=== PATIENT | female | born 1960 | race Caucasian/White ===

== ENCOUNTER 2018-04-15 18:38 | Emergency (ER) | payer MEDICAID, OTHER ==
[~2018-04-15] VITALS: Ht 160 cm; Wt 113.4 kg
[2018-04-15] MEDS ORDERED: ONDANSETRON ODT 4 MG TAB PO ONE (21:00)
[2018-04-15] MEDS ORDERED: MEPERIDINE HCL (50 MG/ML) 1 ML VIAL IM ONE (21:00)
[2018-04-15 21:14] VITALS: BP 177/84
== END 2018-04-15 22:08 | disposition home or self-care (01) ==
LOC: ER 18:38
DX: S42.441A Displaced fracture (avulsion) of medial epicondyle of right humerus, initial encounter for closed fracture (principal); Z88.0 Allergy status to penicillin; W01.0XXA Fall on same level from slipping, tripping and stumbling without subsequent striking against object, initial encounter; Y93.89 Activity, other specified; Y99.8 Other external cause status; Y92.89 Other specified places as the place of occurrence of the external cause
CPT/HCPCS: 29105; 73030; 73080; 96372; 99284; J2175; Q0162

== ENCOUNTER 2021-03-23 19:45 | Inpatient (IN) | payer MEDICAID ==
[~2021-03-23] VITALS: Ht 165.1 cm; Wt 122.4 kg
[2021-03-23 20:57] LABS: Basophils # (auto) 0.1 10 ^3/uL (0-0.2); Basophils % (auto) 0.5 % (0.0-2.0); Eosinophils # (auto) 0 10 ^3/uL (0-0.8); Hematocrit 44.9 % (36.0-46.0); Lymphocytes # (auto) 1.3 10 ^3/uL (0.4-5.4); Lymphocytes % (auto) 10.1 % (10.0-50.0); Mean Corpuscular Hemoglobin 28.4 pg (28.0-32.0); Mean Corpuscular Hgb Conc. 33.5 g/dL (32.0-36.0); Mean Corpuscular Volume 84.8 fL (80.0-100.0); Monocytes # (auto) 0.4 10 ^3/uL (0-1.3); Monocytes % (auto) 3.5 % (0.0-12.0); Neutrophils # (auto) 10.9 10 ^3/uL (1.6-8.6); Neutrophils % (auto) 85.9 % (37.0-80.0); Nucleated Red Blood Cells % 0.1 %; Red Blood Cells 5.29 10^6/uL (4.0-5.20); Red Cell Distribution Width 16.9 % (11.8-14.3); White Blood Cell 12.7 10^3/uL (4.4-10.8)
[2021-03-23 21:07] LABS: Albumin 4.7 g/dL (3.4-5.0); Calcium 9.5 mg/dL (8.5-10.1); Potassium 3.1 mmol/L (3.5-5.1)
[2021-03-23 21:13] LABS: Partial Thromboplastin Time 30.7 sec (23.0-31.2)
[2021-03-23 21:14] LABS: Bilirubin, Total 0.5 mg/dL (0.2-1.0); Total Protein 8.8 g/dL (6.4-8.2)
[2021-03-23] MEDS ORDERED: ONDANSETRON HCL 4 MG/2 ML VIAL IV ONE (21:15)
[2021-03-23] MEDS ORDERED: fentaNYL CITRATE 100 MCG/2 ML VL IV ONE (21:15)
[2021-03-23] MEDS ORDERED: LACTATED RINGER'S 1,000 ML IV ONE (21:15)
[2021-03-23] MEDS ORDERED: IOHEXOL 300 MG/ML 100ML BOTTLE IJ ONE (21:23)
[2021-03-23] MEDS: DICYCLOMINE HCL (10MG/ML) 2 ML AMPULE IM ONE (21:45)
[2021-03-23 22:37] LABS: Lactic Acid w/Reflex 3.2 mmol/L (0.4-2.0)
[2021-03-23 23:26] LABS: Urine Bacteria NONE SEEN /hpf (None Seen); Urine Blood TRACE /uL (Negative); Urine WBC 2 /hpf (0 - 5)
[2021-03-23 23:27] LABS: Urine Specific Gravity > 1.050 (1.001-1.035)
[2021-03-24] MEDS ORDERED: NITROGLYCERIN 0.4 MG SL TAB SL PRN (05:45)
[2021-03-24] MEDS ORDERED: POTASSIUM CHL 20MEQ/100ML 100 ML IV ONE (05:45)
[2021-03-24] MEDS ORDERED: MORPHINE SULF INJ 2 MG/ML SYRINGE 1ML IV PRN (05:45)
[2021-03-24] MEDS ORDERED: hydrALAZINE HCL 20 MG/ML VL IV PRN (05:45)
[2021-03-24] MEDS ORDERED: ASPirin 325 MG TAB PO ONE (05:45)
[2021-03-24] MEDS ORDERED: MORPHINE SULFATE 4 MG/ML SYR/VIAL IV PRN (05:45)
[2021-03-24 07:33] LABS: Basophils # (auto) 0.1 10 ^3/uL (0-0.2); Basophils % (auto) 0.5 % (0.0-2.0); Eosinophils # (auto) 0 10 ^3/uL (0-0.8); Hematocrit 44.3 % (36.0-46.0); Hemoglobin 14.8 g/dL (12.2-16.2); Lymphocytes # (auto) 1.6 10 ^3/uL (0.4-5.4); Lymphocytes % (auto) 11.6 % (10.0-50.0); Mean Corpuscular Hemoglobin 28.3 pg (28.0-32.0); Mean Corpuscular Hgb Conc. 33.4 g/dL (32.0-36.0); Mean Corpuscular Volume 84.8 fL (80.0-100.0); Monocytes # (auto) 0.9 10 ^3/uL (0-1.3); Monocytes % (auto) 6.4 % (0.0-12.0); Neutrophils # (auto) 11.4 10 ^3/uL (1.6-8.6); Neutrophils % (auto) 81.5 % (37.0-80.0); Nucleated Red Blood Cells % 0.2 %; Red Blood Cells 5.23 10^6/uL (4.0-5.20); Red Cell Distribution Width 17.2 % (11.8-14.3); White Blood Cell 13.9 10^3/uL (4.4-10.8)
[2021-03-24 07:43] LABS: Albumin 4.4 g/dL (3.4-5.0); Calcium 8.8 mg/dL (8.5-10.1); Potassium 3.1 mmol/L (3.5-5.1)
[2021-03-24 07:49] LABS: BUN/Creatinine Ratio 17.4; Bilirubin, Total 0.5 mg/dL (0.2-1.0); Total Protein 8.5 g/dL (6.4-8.2)
[2021-03-24] MEDS: metroNIDAZOLE 500MG/100ML 100 ML IV SCH ×3 (07:58→21:25)
[2021-03-24] MEDS: HYDROcodone-ACET 5/325MG TAB PO PRN (07:58)
[2021-03-24] MEDS: SODIUM CHLORIDE 0.9% 1,000 ML IV SCH ×2 (08:57→21:26)
[2021-03-24] MEDS ORDERED: FAMOTIDINE (10MG/ML) 2ML VL IV SCH (10:00)
[2021-03-24] MEDS: ASPirin 81 mg TAB PO SCH (10:00)
[2021-03-24] MEDS: amLODIPine BESYLATE 5 MG TAB PO SCH (11:06)
[2021-03-24] MEDS: ONDANSETRON HCL 4 MG/2 ML VIAL IV PRN ×2 (11:25→19:45)
[2021-03-24] MEDS: levoFLOXacin 500MG 100 ML IV SCH (11:35)
[2021-03-24] MEDS: ENOXAPARIN SOD 40 MG/0.4 ML SYRINGE SC SCH (11:39)
[2021-03-24] MEDS: ACETAMINOPHEN 325 MG TAB PO PRN (14:49)
[2021-03-24 16:57] VITALS: BP 147/82
[2021-03-24] MEDS: PANTOPRAZOLE 40 MG TAB PO SCH (21:25)
[2021-03-24 22:00] VITALS: BP 137/98
[2021-03-25] MEDS: HYDROcodone-ACET 5/325MG TAB PO PRN ×2 (04:13→12:20)
[2021-03-25] MEDS: metroNIDAZOLE 500MG/100ML 100 ML IV SCH (04:51)
[2021-03-25 05:00] VITALS: BP 119/77
[2021-03-25 06:40] LABS: Basophils # (auto) 0 10 ^3/uL (0-0.2); Basophils % (auto) 0.2 % (0.0-2.0); Eosinophils # (auto) 0 10 ^3/uL (0-0.8); Eosinophils % (auto) 0.2 % (0.0-7.0); Hematocrit 41.4 % (36.0-46.0); Lymphocytes # (auto) 1.9 10 ^3/uL (0.4-5.4); Lymphocytes % (auto) 20.6 % (10.0-50.0); Mean Corpuscular Hemoglobin 28.8 pg (28.0-32.0); Mean Corpuscular Hgb Conc. 33.8 g/dL (32.0-36.0); Mean Corpuscular Volume 84.9 fL (80.0-100.0); Monocytes % (auto) 10.6 % (0.0-12.0); Neutrophils # (auto) 6.2 10 ^3/uL (1.6-8.6); Neutrophils % (auto) 68.4 % (37.0-80.0); Nucleated Red Blood Cells % 0.1 %; Red Blood Cells 4.88 10^6/uL (4.0-5.20); Red Cell Distribution Width 17.6 % (11.8-14.3); White Blood Cell 9.1 10^3/uL (4.4-10.8)
[2021-03-25 06:49] LABS: Albumin 3.8 g/dL (3.4-5.0); Calcium 8.5 mg/dL (8.5-10.1); Potassium 3.3 mmol/L (3.5-5.1)
[2021-03-25 06:54] LABS: Bilirubin, Total 0.4 mg/dL (0.2-1.0); Total Protein 7.4 g/dL (6.4-8.2)
[2021-03-25 09:00] VITALS: BP 129/74
[2021-03-25] MEDS: ACETAMINOPHEN 325 MG TAB PO PRN (09:06)
[2021-03-25] MEDS: ONDANSETRON HCL 4 MG/2 ML VIAL IV PRN (09:06)
[2021-03-25] MEDS ORDERED: POTASSIUM CHL 20 Meq TABLET PO ONE (10:00)
[2021-03-25] MEDS: amLODIPine BESYLATE 5 MG TAB PO SCH (12:20)
[2021-03-25] MEDS: ASPirin 81 mg TAB PO SCH (12:20)
[2021-03-25] MEDS: levoFLOXacin 500MG 100 ML IV SCH (12:20)
[2021-03-25] MEDS: PANTOPRAZOLE 40 MG TAB PO SCH ×2 (12:21→20:47)
[2021-03-25] MEDS: ENOXAPARIN SOD 40 MG/0.4 ML SYRINGE SC SCH (12:23)
[2021-03-25 13:00] VITALS: BP 143/87
[2021-03-25 13:03] LABS: BUN/Creatinine Ratio 16.2
[2021-03-25] MEDS ORDERED: HYOSCYAMINE SULF 0.125 MG ODT TAB PO PRN (13:45)
[2021-03-25] MEDS: SODIUM CHLORIDE 0.9% 1,000 ML IV SCH (14:14)
[2021-03-25] MEDS ORDERED: MELA3TAB27 PO (14:25)
[2021-03-25 17:00] VITALS: BP 128/73
[2021-03-25] MEDS: SUCRALFATE 1 GM/10 ML ORAL SUSP PO SCH ×2 (17:34→20:46)
[2021-03-25] MEDS: ATORVASTATIN 20 MG TAB PO SCH (20:47)
[2021-03-25 22:00] VITALS: BP 154/83
[2021-03-26] MEDS ORDERED: TEMAZEPAM 15 MG CAP PO ONE (00:30)
[2021-03-26 05:00] VITALS: BP 154/77
[2021-03-26] MEDS: SUCRALFATE 1 GM/10 ML ORAL SUSP PO SCH ×4 (05:24→21:24)
[2021-03-26 06:12] LABS: Potassium 3.6 mmol/L (3.5-5.1)
[2021-03-26 06:15] LABS: BUN/Creatinine Ratio 14.5; Calcium 8.5 mg/dL (8.5-10.1)
[2021-03-26] MEDS ORDERED: diphenhdrAMINE HCL 50 MG/1 ML VL ONE (08:43)
[2021-03-26] MEDS ORDERED: LIDOCAINE VISCOUS 2% 15ML UD ONE (08:43)
[2021-03-26 09:00] VITALS: BP 152/65
[2021-03-26] MEDS: amLODIPine BESYLATE 5 MG TAB PO SCH (09:16)
[2021-03-26] MEDS: HYDROcodone-ACET 5/325MG TAB PO PRN (09:17)
[2021-03-26] MEDS: ENOXAPARIN SOD 40 MG/0.4 ML SYRINGE SC SCH (10:00)
[2021-03-26] MEDS: ASPirin 81 mg TAB PO SCH (10:00)
[2021-03-26] MEDS: PANTOPRAZOLE 40 MG TAB PO SCH ×2 (10:00→21:24)
[2021-03-26] MEDS: SODIUM CHLORIDE 0.9% 1,000 ML IV SCH (10:00)
[2021-03-26] MEDS ORDERED: KETOROLAC TROMETH 30 MG/ML 1ML VIAL IV ONE (10:45)
[2021-03-26] MEDS: MIDAZOLAM HCL 5 MG/ML-1ML VIAL ONE ×2 (11:46→11:49)
[2021-03-26] MEDS: fentaNYL CITRATE 100 MCG/2 ML VL ONE ×2 (11:46→11:49)
[2021-03-26 13:00] VITALS: BP 191/114
[2021-03-26 13:06] VITALS: BP 148/72
[2021-03-26] MEDS ORDERED: LACTULOSE 20Gm/30ML SOLN PO ONE (13:15)
[2021-03-26] MEDS ORDERED: KETOROLAC TROMETH 30 MG/ML 1ML VIAL IV PRN (13:15)
[2021-03-26] MEDS ORDERED: LORazepam 2MG/ML-1ML VIAL IV ONE (13:15)
[2021-03-26 16:41] VITALS: BP 117/44
[2021-03-26] MEDS: ATORVASTATIN 20 MG TAB PO SCH (21:24)
[2021-03-26 22:00] VITALS: BP 129/68
[2021-03-27 05:00] VITALS: BP 141/91
[2021-03-27] MEDS: SODIUM CHLORIDE 0.9% 1,000 ML IV SCH ×2 (05:31→05:38)
[2021-03-27] MEDS: SUCRALFATE 1 GM/10 ML ORAL SUSP PO SCH ×2 (05:39→11:49)
[2021-03-27 09:00] VITALS: BP 127/72
[2021-03-27] MEDS: ASPirin 81 mg TAB PO SCH (09:56)
[2021-03-27] MEDS: amLODIPine BESYLATE 5 MG TAB PO SCH (09:57)
[2021-03-27] MEDS: PANTOPRAZOLE 40 MG TAB PO SCH (09:57)
[2021-03-27] MEDS: ENOXAPARIN SOD 40 MG/0.4 ML SYRINGE SC SCH (09:57)
[2021-03-27] MEDS ORDERED: PANT40TA2 PO (10:31)
[2021-03-27] MEDS ORDERED: SUCR1TAB22 PO (10:31)
[2021-03-27] MEDS ORDERED: ATOR20TA PO (10:31)
[2021-03-27] MEDS ORDERED: AML5T PO (10:31)
[2021-03-27] MEDS ORDERED: DOCU-94 PO (10:31)
[2021-03-27 13:00] VITALS: BP 130/74
== END 2021-03-27 16:34 | disposition home or self-care (01) | DRG 720 ==
LOC: ER 19:51 → TELE 03-24 06:00 → TELE-CENTR 03-24 14:14
PROVIDERS: ADMIT Nurse Practitioner Family; ATTEND Internal Medicine
PROC: 0DB68ZX Excision of Stomach, Via Natural or Artificial Opening Endoscopic, Diagnostic (ICD-10-PCS; 2021-03-26)
PROC: 0DB58ZX Excision of Esophagus, Via Natural or Artificial Opening Endoscopic, Diagnostic (ICD-10-PCS; principal; 2021-03-26 11:45)
DX: A41.9 Sepsis, unspecified organism (principal); I21.A1 Myocardial infarction type 2; E66.01 Morbid (severe) obesity due to excess calories; E87.1 Hypo-osmolality and hyponatremia; Z68.41 Body mass index [BMI] 40.0-44.9, adult; R13.10 Dysphagia, unspecified; I16.1 Hypertensive emergency; A05.9 Bacterial foodborne intoxication, unspecified; R73.9 Hyperglycemia, unspecified; E78.5 Hyperlipidemia, unspecified; E87.6 Hypokalemia; K20.90 Esophagitis, unspecified without bleeding; K29.70 Gastritis, unspecified, without bleeding; Z20.822 Contact with and (suspected) exposure to COVID-19; K25.9 Gastric ulcer, unspecified as acute or chronic, without hemorrhage or perforation; G43.909 Migraine, unspecified, not intractable, without status migrainosus; I10 Essential (primary) hypertension; Z90.710 Acquired absence of both cervix and uterus; Z88.0 Allergy status to penicillin
CPT/HCPCS: 36415; 43239; 70450; 70551; 71045; 74018; 74177; 80048; 80053; 80061; 81001; 83036; 83605; 83735; 83880; 84443; 84484; 85025; 85610; 85730; 86850; 86900; 86901; 87426; 93005; 93306; 96361; 96365; 96367; 96372; 96375; 97163; G0378; J1885; J1956; J2250; J2405; J3480; J3490

== ENCOUNTER 2024-11-17 14:20 | Inpatient (IN) | payer MEDICARE, MEDICAID ==
[~2024-11-17] VITALS: Ht 162.6 cm; Wt 115.0 kg
[~2024-11-17 14:20] MED LIST: ATOR20TA PO; DOCU-94 PO; MELA3TAB27 PO; PANT40TA2 PO; SUCR1TAB31 PO
--- NOTE | 2024-11-17 14:36 | ED.PDOC ---
GI ASSESSMENT HPI Comments 64-year-old female brought in by EMS presents with a chief complaint of abdominal pain, nausea, vomiting, and diarrhea x onset 0600 this morning. Patient states that her pain is localized to her RUQ, radiating to her LUQ, describes as sharp, and rates her pain a 9/10. Patient was given 50mcg Fentanyl IV by EMS for the pain. Patient was also hypertensive at 191/73. No other symptoms or modifying factors present at this time. Time Seen by MD: 14:27 Primary Care Provider: NONE Reviewed Notes: Nurses Notes, Medications, Allergies Allergies: Coded Allergies: Penicillins (Unverified Allergy, Unknown, 04/15/18) Home Meds Active Scripts Docusate Sodium (Colace) 100 Mg Cap, 1 CAP PO BID PRN, #30 CAP Prov:BITA COTE MD 03/27/21 Sucralfate (CARAFATE) 1 Gm Tab, 1 GM PO QIDACHS for 30 Days, #120 TAB Prov:BITA COTE MD 03/27/21 Pantoprazole Sodium Sesquihydr (Protonix) 40 Mg Tab, 40 MG PO BID for 30 Days, #60 TAB Prov:BITA COTE MD 03/27/21 Atorvastatin Calcium (Lipitor) 20 Mg Tab, 1 TAB PO DAILY, #30 TAB Prov:BITA COTE MD 03/27/21 Reported Medications Melatonin ( MELATONIN) 3 Mg Tab, 1 TAB PO QPM, #30 TAB 2 Refills 03/25/21 Information Source: Patient Mode of Arrival: Ambulatory Timing: Hours Duration: Since onset Prehospital treatment: None Quality: Aching Vomitus: Food Particles Stool: Watery, Brown Severity: Moderate Recent: None Recent Hx of: None Pain Location: RUQ Associated sign and symptoms: Nausea, Vomiting, Diarrhea, Abdominal Pain Past Medical History PAST MEDICAL HISTORY: GERD, HTN Surgical History: Hysterectomy LEASING SPECIALIST History: No Pertinent LEASING SPECIALIST History Family History Family History: Unknown Social History Smoker: Non-Smoker Alcohol: Denies ETOH Use Drugs: Marijuana Lives In: Home Constitutional: denies: chills, diaphoresis, fatigue, fever, malaise, sweats, weakness, others EENTM: denies: blurred vision, double vision, ear bleeding, ear discharge, ear drainage, ear pain, ear ringing, eye pain, eye redness, hearing loss, mouth pain, mouth swelling, nasal discharge, nose bleeding, nose congestion, nose pain, photophobia, tearing, throat pain, throat swelling, voice changes, others Respiratory: denies: cough, hemoptysis, orthopnea, SOB at rest, shortness of breath, SOB with excertion, stridor, wheezing, others Cardiovascular: denies: chest pain, dizzy spells, diaphoresis, Dyspnea on exertion, edema, irregular heart beat, left arm pain, lightheadedness, palpitations, PND, syncope, others Gastrointestinal: reports: abdominal pain, diarrhea, nausea, vomiting; denies: abdomen distended, blood streaked bowels, constipated, dysphagia, difficulty swallowing, hematemesis, melena, poor appetite, poor fluid intake, rectal bleeding, rectal pain, others Genitourinary: denies: abnormal vagina bleeding, burning, dyspareunia, dysuria, flank pain, frequency, hematuria, incontinence, pain, , vagina dis charge, urgency, others Neurological: denies: dizziness, fainting, headache, left sided numbness, left sided weakness, numbness, paresthesia, pre-existing deficit, right sided numbness, right sided weakness, seizure, speech problems, tingling, tremors, weakness, others Musculoskeletal: denies: back pain, gout, joint pain, joint swelling, muscle pain, muscle stiffness, neck pain, others Integumetry: denies: bruises, change in color, change in hair/nails, dryness, laceration, lesions, lumps, rash, wounds, others Allergic/Immunocompromised: denies: Difficulty Healing, Frequent Infections, Hives, Itching, others Hematologic/Lymphatic: denies: anemia, blood clots, easy bleeding, easy bruising, swollen glands, others Endocrine: denies: excessive hunger, excessive sweating, excessive thirst, excessive urination, flushing, intolerance to cold, intolerance to heat, unexplained weight gain, unexplained weight loss, others Psychiatric: denies: anxiety, bipolar disorder, depression, hopeless, panic disorder, schizophrenia, sleepless, suicidal, others All Other Systems: Reviewed and Negative Physical Exam General Appearance: Moderate Distress HEENT: Normal ENT Inspection, Pharynx Normal, TMs Normal Neck: Full Range of Motion, Non-Tender, Normal, Normal Inspection Respiratory: Chest Non-Tender, Lungs Clear, No Accessory Muscle Use, No Respiratory Distress, Normal Breath Sounds Cardiovascular: No Edema, No JVD, No Murmur, No Gallop, Normal Peripheral Pulses, Regular Rate/Rhythm Breast Exam: Deferred Gastrointestinal: Epigastric, No Organomegaly, No Pulsatile Mass, Normal Bowel Sounds, RUQ, Soft, Tenderness Genitalia: Deferred Pelvic: Deferred Rectal: Deferred Extremities: No calf tenderness, Normal capillary refill, Normal inspection, Normal range of motion, Non-tender, No pedal edema Musculoskeletal : Apperance: Normal Neurologic: Alert, registered nurse practitioner II-XII nml as Tested, Motor Weakness, Normal Affect, Normal Mood, No Sensory Deficits Cerebellar Function: Normal Reflexes: Normal Skin: Dry, Normal Color, Warm Lymphatic: No Adenopathy EKG EKG : Pulse Rate (adult): 61 [place]: Normal Cardiac Rhythm: NSR Block: None Hypertrophy: None ST: Normal Was a procedure done? Was a procedure done?: No GI differential Dx Differential Diagnosis: Gastritis/PUD, Gastroenteritis, Inflammatory BD, Ischemic Bowel, Pancreatitis, UTI, Electrolyte Imbalance, Food Poisoning X-Ray, Labs, Meds, VS Vital Signs Date Time Temp Pulse Resp B/P (MAP) Pulse Ox O2 Delivery O2 Flow Rate FiO2 11/17/24 16:57 75 18 181/93 11/17/24 14:52 97.5 85 18 171/73 (105) 97 11/17/24 14:36 61 11/17/24 14:25 61 Lab Test 11/17/24 15:24 11/17/24 15:10 Range/Units Urine Color Light-yellow Yellow Urine Clarity Turbid H Clear Urine pH 8.0 5.0-9.0 Urine Specific [place] 1.015 1.001-1.035 Urine Protein Negative Negative Urine Ketones Negative Negative Urine Blood Negative Negative /uL Urine Nitrite Negative Negative Urine Bilirubin Negative Negative Urine Urobilinogen Normal Negative mg/dL Urine Leukocyte Esterase Negative Negative /uL Urine RBC 1 0 - 4 /hpf Urine Microscopic WBC 2 0-5 /HPF Urine Squamous Epithelial Cells Few <5 /hpf Urine Bacteria Few H None Seen /hpf Urine Glucose Normal Normal mg/dL White Blood Count 8.3 4.4-10.8 10^3/uL Red Blood Count 5.07 4.0-5.20 10^6/uL Hemoglobin 13.9 12.2-16.2 g/dL Hematocrit 43.0 36.0-46.0 % Mean Corpuscular Volume 84.8 80.0-100.0 fL Mean Corpuscular Hemoglobin 27.4 L 28.0-32.0 pg Mean Corpuscular Hemoglobin Concent 32.3 32.0-36.0 g/dL Red Cell Distribution Width 17.5 H 11.8-14.3 % Platelet Count 212 140-450 10^3/uL Mean Platelet Volume 9.3 6.9-10.8 fL Neutrophils (%) (Auto) 80.1 H 37.0-80.0 % Lymphocytes (%) (Auto) 15.4 10.0-50.0 % Monocytes (%) (Auto) 4.0 0.0-12.0 % Eosinophils (%) (Auto) 0.2 0.0-7.0 % Basophils (%) (Auto) 0.3 0.0-2.0 % Neutrophils # (Auto) 6.6 1.6-8.6 10 ^3/uL Lymphocytes # (Auto) 1.3 0.4-5.4 10 ^3/uL Monocytes # (Auto) 0.3 0-1.3 10 ^3/uL Eosinophils # (Auto) 0 0-0.8 10 ^3/uL Basophils # (Auto) 0 0-0.2 10 ^3/uL Nucleated Red Blood Cells 0.0 % Sodium Level 135 L 136-145 mmol/L Potassium Level 4.0 3.5-5.1 mmol/L Chloride Level 100 98-107 mmol/L Carbon Dioxide Level 27 20-31 mmol/L Anion Gap 8 5-15 Blood Urea Nitrogen 13 9-23 mg/dL Creatinine 0.73 0.550-1.02 mg/dL Glomerular Filtration Rate Calc 91 >90 mL/min BUN/Creatinine Ratio 17.8 10.0-20.0 Serum Glucose 138 H 74-106 mg/dL Calcium Level 10.1 8.7-10.4 mg/dL Total Bilirubin 0.3 0.2-1.0 mg/dL Aspartate Amino Transferase (AST) 17 13-40 U/L Alanine Aminotransferase (ALT) 22 7-40 U/L Alkaline Phosphatase 85 46-116 U/L Total Protein 8.1 5.7-8.2 g/dL Albumin 5.3 H 3.2-4.8 g/dL Lipase 29 12-53 U/L Current Medications Medications (Trade) Dose Ordered Sig/Omer Route Start Time Stop Time Status Last Admin Ondansetron HCl (Zofran) 4 mg ONCE ONCE IV 11/17/24 14:45 11/17/24 14:46 DC 11/17/24 16:56 Morphine Sulfate 4 mg ONCE ONCE IV 11/17/24 14:45 11/17/24 14:46 DC 11/17/24 16:57 Sodium Chloride 500 ml @ 500 mls/hr Q1H ONCE IVB 11/17/24 14:45 11/17/24 15:44 DC 11/17/24 16:57 Pantoprazole Sodium (Protonix) 40 mg ONCE ONCE IV 11/17/24 14:45 11/17/24 14:46 DC 11/17/24 16:56 Gallbladder US Impression: 1. Mildly echogenic liver parenchyma likely related to fatty infiltration. 2. There is no sonographic evidence of cholelithiasis. The patient was given Zofran 4 mg IV push The patient was given morphine 4 mg IV push for the pain The patient was given normal saline at a 500 cc bolus The patient was given Protonix 40 mg IV push The CBC and chemistry panel are within normal limits The urine test is within normal limits The patient was being admitted to the hospitalist The patient understands and agrees with the management. The patient was still having persistent pain Images Reviewed?: Images reviewed and evaluated by me Time of 1ST Reevaluation: 14:57 Reevaluation 1ST: Unchanged Patient Education/Counseling: Diagnosis, Treatment, Prognosis Family Education/Counseling: Diagnosis, Treatment, Prognosis Departure 1 Departure Time of Disposition: 18:01 Impression: Primary Impression: Intractable abdominal pain Disposition: 09 ADMITTED INPATIENT Admit to: Med Surg Condition: Fair Critical Care Note Critical Care Time?: No Stability Stability form required: Yes Unstable for transfer: ED Physician Assesment (Clinical assesment) Heart Score Heart Score: Heart Score Response (Comments) Value History N/A 0 EKG N/A 0 Age N/A 0 Risk Factors N/A 0 Troponin N/A 0 Total 0 I personally scribed for GRISELDA LU MD ([email or web address]) on 11/17/24 at 14:36. Electronically submitted by Scotty Farr ([email or web address]). I personally scribed for GRISELDA LU MD ([email or web address]) on 11/17/24 at 15:11. Electronically submitted by Scotty Farr ([email or web address]). GRISELDA LU MD Nov 17, 2024 14:36
--- NOTE | 2024-11-17 15:05 | DVH ---
ULTRASOUND ABDOMEN LIMITED INDICATION: pain TECHNIQUE: Multiple real-time sonographic images of the abdomen were obtained. COMPARISON: None FINDINGS: The visualized liver parenchyma appears mildly echogenic. . The liver measures 18.9 cm. No disc rete hepatic lesion or intrahepatic biliary ductal dilatation is identified. There is no evidence of gallstones, gallbladder wall thickening or pericholecystic fluid. The common biliary duct is not dilated. The right kidney measures 10 cm length. No sonographic evidence of nephrolithiasis or hydronephrosi s. Visualized portions of the pancreas appears within normal limits. IMPRESSION: 1. Mildly echogenic liver parenchyma likely related to fatty infiltration. 2. There is no sonographic evidence of cholelithiasis. HS:Y
[2024-11-17 15:31] LABS: Basophils # (auto) 0 10 ^3/uL (0-0.2); Basophils % (auto) 0.3 % (0.0-2.0); Eosinophils # (auto) 0 10 ^3/uL (0-0.8); Eosinophils % (auto) 0.2 % (0.0-7.0); Hemoglobin 13.9 g/dL (12.2-16.2); Lymphocytes # (auto) 1.3 10 ^3/uL (0.4-5.4); Lymphocytes % (auto) 15.4 % (10.0-50.0); Mean Corpuscular Hemoglobin 27.4 pg (28.0-32.0); Mean Corpuscular Hgb Conc. 32.3 g/dL (32.0-36.0); Mean Corpuscular Volume 84.8 fL (80.0-100.0); Monocytes # (auto) 0.3 10 ^3/uL (0-1.3); Neutrophils # (auto) 6.6 10 ^3/uL (1.6-8.6); Neutrophils % (auto) 80.1 % (37.0-80.0); Platelet Count (auto) 212 10^3/uL (140-450); Red Blood Cells 5.07 10^6/uL (4.0-5.20); Red Cell Distribution Width 17.5 % (11.8-14.3); White Blood Cell 8.3 10^3/uL (4.4-10.8)
[2024-11-17 15:37] LABS: Urine Bacteria FEW /hpf (None Seen); Urine Blood Negative /uL (Negative); Urine Clarity Turbid (Clear); Urine Color Light-Yellow (Yellow); Urine Protein, UAD Negative (Negative); Urine Specific Gravity 1.015 (1.001-1.035); Urine Squamous Epithelial Cell FEW /hpf (<5); Urine Urobilinogen Normal (Negative); Urine WBC 2 /HPF (0-5)
[2024-11-17 15:46] LABS: Alanine Aminotransferase 22 U/L (7-40); Alkaline Phosphatase 85 U/L (46-116); Anion Gap 8 (5-15); Aspartate Aminotransferase 17 U/L (13-40); BUN/Creatinine Ratio 17.8 (10.0-20.0); Blood Urea Nitrogen 13 mg/dL (9-23); Calcium 10.1 mg/dL (8.7-10.4); Carbon Dioxide 27 mmol/L (20-31); Chloride 100 mmol/L (98-107)
[2024-11-17 15:47] LABS: Albumin 5.3 g/dL (3.2-4.8); Bilirubin, Total 0.3 mg/dL (0.2-1.0); Glucose 138 mg/dL (74-106); Sodium 135 mmol/L (136-145); Total Protein 8.1 g/dL (5.7-8.2)
[2024-11-17 15:58] LABS: Lipase 29 U/L (12-53)
[2024-11-17 16:50] VITALS: PULSE 75; RESP 18; O2SAT 99
[2024-11-17] MEDS: ONDANSETRON HCL 4 MG/2 ML VIAL IV ONE (16:56)
[2024-11-17] MEDS: PANTOPRAZOLE 40 MG/10 ML VIAL INJ IV ONE (16:56)
[2024-11-17] MEDS: SODIUM CHLORIDE 0.9% 500 ML IVB ONE (16:57)
[2024-11-17] MEDS: MORPHINE SULFATE 4 MG/ML SYR/VIAL IV ONE (16:57)
--- NOTE | 2024-11-17 19:16 | ECG ---
[facility] Test Date: 2024-11-17 Test Time: 14:25:45 Pat Name: MARY MCFARLAND Department: ED Room: 0221 Gender: F Dial Lathe Operator: SARAH : 1960 Requested By: GRISELDA LU Order Number: [id number] Reading MD: Faizan Vega Measurements Intervals [place] Rate: 61 P: 60 [place]: 158 QRS: 46 QRSD: 105 T: 52 QT: 423 QTc: 426 Interpretive Statements Sinus rhythm Low voltage, precordial leads Electronically Signed On 11-18-2024 13:16:54 PST by Faizan Vega Please click the below link to view image of tracing.
[2024-11-17 19:24] VITALS: PULSE 86; RESP 16; O2SAT 96
[2024-11-17] MEDS: HYDROmorphone HCL 2 MG/ML VL/or syr IV ONE (21:01)
--- NOTE | 2024-11-17 22:41 | DVHHPRES ---
History of Present Illness Resident Creating Document: LEEANNA MCKNIGHT RESDILAURA History of Present Illness This is a 64-year-old female with past medical history of coronary artery disease, depression, hypertension, irritable bowel syndrome, and peptic ulcer disease presented to the hospital due to abdominal pain, vomiting and diarrhea. Per patient, the patient has localized epigastric pain since 1 days, counseled, sharp in nature, 06/26/2010, which increased with mobility and changing position. She also reports of nausea, vomiting (60 episodes), fever, headache, cough, and diarrhea (10 episodes). She denies shortness of breath, chest pain, palpitation, dysuria, or any recent sick contact. PMHx: coronary artery disease, depression, hypertension, irritable bowel syndrome, peptic ulcer disease and constipation PSHx: Hysterectomy and left rotator cuff surgery Family history: Mom had lymphoma and father had heart failure Social history: Patient lives with the family at home, ex-smoker, denies alcohol and any drug use. Home medication: Sulfasalazine, Protonix, amlodipine, topiramate, bupropion, carvedilol Allergic history: Penicillins Review of Systems Review of Systems General: Patient reports generalized weakness HEENT: No headaches, visiual changes, hearing loss, tinnitus, nasal congestion and discharge, and sore throat. Cardiovascular: Denies chest pain, palpitations, dyspnea on exertion, orthopnea, or claudication. Respiratory: Reports cough Gastrointestinal: Reports nausea, vomiting, diarrhea and abdominal pain Genitourinary: No dysuria, hematuria, discharge, frequency, urgency, nocturia, incontinence, and urinary retention. Endocrine: No heat or cold intolerance, polydipsia, polyuria, and polyphagia. Neurological: No dizziness, extremity weakness and numbness, tremors, gait disturbance, seizures, and memory impairment. Psychiatric: Denies depression, anxiety,or insomnia. Musculoskeletal: Denies neck pain, stiffness and swelling, back pain, muscle weakness, joint pain, stiffness, swelling, or limited range of motion. Skin: No rashes, itching, skin lesion, changes in hair, nail, skin texture and breast. Hematologic/Lymphatic: Denies easy bruising, bleeding tendencies, or lymph node enlargement. Allergies: Coded Allergies: Penicillins (Unverified Allergy, Unknown, 04/15/18) Exam Vital Signs Vital Signs Date Time Temp Pulse Resp B/P (MAP) Pulse Ox O2 Delivery O2 Flow Rate FiO2 11/17/24 22:00 95 20 113/67 (82) 93 11/17/24 19:24 98.4 98.4 11/17/24 19:24 Room Air* 0 21 Exam General Appearance: Alert, Oriented X3, Cooperative, No acute distress HEENT: Atraumatic, PERRLA, EOMI, Mucous membrane moist/pink Respiratory: Clear to auscultation, Normal air movement Cardiovascular: Regular rate, Normal S1, Normal S2, No murmurs, no chest wall tenderness Abdominal: Epigastric tenderness Extremities: Bilateral grade 1 pedal edema Skin: No rashes, No breakdown, No significant lesion Neuro: Normal gait, Normal speech, Strength at 5/5 X4 ext, Normal tone, Sensation intact, Cranial nerves 3-12 NL, Reflexes 2+ Psych/Mental Status: Mental status NL, Mood NL Labs/Xrays Labs Test 11/17/24 15:24 11/17/24 15:10 Range/Units Urine Color Light-yellow Yellow Urine Clarity Turbid H Clear Urine pH 8.0 5.0-9.0 Urine Specific [place] 1.015 1.001-1.035 Urine Protein Negative Negative Urine Ketones Negative Negative Urine Blood Negative Negative /uL Urine Nitrite Negative Negative Urine Bilirubin Negative Negative Urine Urobilinogen Normal Negative mg/dL Urine Leukocyte Esterase Negative Negative /uL Urine RBC 1 0 - 4 /hpf Urine Microscopic WBC 2 0-5 /HPF Urine Squamous Epithelial Cells Few <5 /hpf Urine Bacteria Few H None Seen /hpf Urine Glucose Normal Normal mg/dL White Blood Count 8.3 4.4-10.8 10^3/uL Red Blood Count 5.07 4.0-5.20 10^6/uL Hemoglobin 13.9 12.2-16.2 g/dL Hematocrit 43.0 36.0-46.0 % Mean Corpuscular Volume 84.8 80.0-100.0 fL Mean Corpuscular Hemoglobin 27.4 L 28.0-32.0 pg Mean Corpuscular Hemoglobin Concent 32.3 32.0-36.0 g/dL Red Cell Distribution Width 17.5 H 11.8-14.3 % Platelet Count 212 140-450 10^3/uL Mean Platelet Volume 9.3 6.9-10.8 fL Neutrophils (%) (Auto) 80.1 H 37.0-80.0 % Lymphocytes (%) (Auto) 15.4 10.0-50.0 % Monocytes (%) (Auto) 4.0 0.0-12.0 % Eosinophils (%) (Auto) 0.2 0.0-7.0 % Basophils (%) (Auto) 0.3 0.0-2.0 % Neutrophils # (Auto) 6.6 1.6-8.6 10 ^3/uL Lymphocytes # (Auto) 1.3 0.4-5.4 10 ^3/uL Monocytes # (Auto) 0.3 0-1.3 10 ^3/uL Eosinophils # (Auto) 0 0-0.8 10 ^3/uL Basophils # (Auto) 0 0-0.2 10 ^3/uL Nucleated Red Blood Cells 0.0 % Sodium Level 135 L 136-145 mmol/L Potassium Level 4.0 3.5-5.1 mmol/L Chloride Level 100 98-107 mmol/L Carbon Dioxide Level 27 20-31 mmol/L Anion Gap 8 5-15 Blood Urea Nitrogen 13 9-23 mg/dL Creatinine 0.73 0.550-1.02 mg/dL Glomerular Filtration Rate Calc 91 >90 mL/min BUN/Creatinine Ratio 17.8 10.0-20.0 Serum Glucose 138 H 74-106 mg/dL Calcium Level 10.1 8.7-10.4 mg/dL Total Bilirubin 0.3 0.2-1.0 mg/dL Aspartate Amino Transferase (AST) 17 13-40 U/L Alanine Aminotransferase (ALT) 22 7-40 U/L Alkaline Phosphatase 85 46-116 U/L Total Protein 8.1 5.7-8.2 g/dL Albumin 5.3 H 3.2-4.8 g/dL Lipase 29 12-53 U/L Assessment/Plan Assessment/Plan Gastroenteritis, likely due to bacterial/viral Intractable abdominal pain Stool study, C diff CT abdominopelvic IV fluid Pain killer Zofran p.r.n. Next history of depression Continue bupropion and topiramate Hypertension urgency Can continue amlodipine and carvedilol History of peptic ulcer disease Fatty liver disease , ultrasound finding History of coronary artery disease Continue atorvastatin DIET: Clear liquid diet DVT PROPHYLAXIS: Lovenox GI PROPHYLAXIS:: Protonix CODE STATUS: Goal of care discussed for more than 18 minutes, full code DISPOSITION: Med/surge Patient's status and paln discussed with the patient Case discussed with Dr. De Leon. Plan discussed with: Patient, Other Date of Service: Nov 17, 2024 Billing Provider: DRE FORTE MD Common Visit Codes: [id number] INP/OBS CARE (HIGH) LEEANNA MCKNIGHT RESDIENT Nov 17, 2024 22:41 DRE FORTE MD Nov 23, 2024 16:00
[2024-11-17] MEDS: SODIUM CHLORIDE 0.9% 1,000 ML IV ONE ×2 (23:13)
[2024-11-17 23:24] VITALS: BP 111/73; PULSE 88; RESP 20; TEMP 99; O2SAT 94
[2024-11-18] VITALS (7 sets, daily range): BP systolic 111–145; BP diastolic 53–86; PULSE 73–88; RESP 16–20; TEMP 98–99; O2SAT 85–95
[2024-11-18] MEDS ORDERED: ATEN1TAB38 PO (00:24)
[2024-11-18] MEDS ORDERED: AML5T PO (00:24)
[2024-11-18] MEDS ORDERED: ONDANSETRON HCL 4 MG/2 ML VIAL IV PRN (00:30)
[2024-11-18 02:00] LABS: Amphetamine Screen, Urine Neg (NEGATIVE)
[2024-11-18 02:01] LABS: Barbiturate Scree,Urine Neg (NEGATIVE); Benzodiazephine Screen, Urine Neg (NEGATIVE); Cannabinoid Screen, Urine Pos (NEGATIVE); Cocaine Screen, Urine Neg (NEGATIVE); Opiate Scree,Urine Neg (NEGATIVE); Phencyclidine Screen, Urine Neg (NEGATIVE)
[2024-11-18] MEDS: HYDROcodone-ACET 5/325MG TAB PO PRN (02:01)
[2024-11-18] MEDS: MELATONIN 5 MG TAB PO ONE ×2 (02:01→02:04)
[2024-11-18 02:48] LABS: COVID19 ANTIGEN SOFIA FIA NEGATIVE (NEGATIVE)
[2024-11-18] MEDS: PNEUMOCOCCAL VACC POLYS 25 MCG/0.5 ML VIAL IM ONE (04:00)
[2024-11-18] MEDS: INFLUENZA TRIVALENT 2024-2025 0.5 ML INJ IM ONE (04:00)
[2024-11-18] MEDS: ATORVASTATIN 20 MG TAB PO ONE (04:31)
[2024-11-18 06:28] LABS: Basophils # (auto) 0 10 ^3/uL (0-0.2); Basophils % (auto) 0.1 % (0.0-2.0); Eosinophils # (auto) 0 10 ^3/uL (0-0.8); Eosinophils % (auto) 0.1 % (0.0-7.0); Hemoglobin 12.8 g/dL (12.2-16.2); Lymphocytes # (auto) 1.7 10 ^3/uL (0.4-5.4); Lymphocytes % (auto) 20.9 % (10.0-50.0); Mean Corpuscular Hemoglobin 27.6 pg (28.0-32.0); Mean Corpuscular Hgb Conc. 32.7 g/dL (32.0-36.0); Mean Corpuscular Volume 84.4 fL (80.0-100.0); Monocytes # (auto) 0.7 10 ^3/uL (0-1.3); Monocytes % (auto) 9.2 % (0.0-12.0); Neutrophils # (auto) 5.6 10 ^3/uL (1.6-8.6); Neutrophils % (auto) 69.7 % (37.0-80.0); Nucleated Red Blood Cells % 0.2 %; Platelet Count (auto) 211 10^3/uL (140-450); Red Blood Cells 4.62 10^6/uL (4.0-5.20); Red Cell Distribution Width 17.6 % (11.8-14.3); White Blood Cell 8.1 10^3/uL (4.4-10.8)
[2024-11-18] MEDS: buPROPion HCL 75 MG TAB PO SCH (06:33)
[2024-11-18 06:48] LABS: Alanine Aminotransferase 18 U/L (7-40); Albumin 4.5 g/dL (3.2-4.8); Alkaline Phosphatase 70 U/L (46-116); Anion Gap 10 (5-15); Aspartate Aminotransferase 17 U/L (13-40); BUN/Creatinine Ratio 16.9 (10.0-20.0); Bilirubin, Total 0.4 mg/dL (0.2-1.0); Blood Urea Nitrogen 11 mg/dL (9-23); Calcium 9.8 mg/dL (8.7-10.4); Carbon Dioxide 25 mmol/L (20-31); Chloride 100 mmol/L (98-107); Glucose 119 mg/dL (74-106); Potassium 3.8 mmol/L (3.5-5.1); Sodium 135 mmol/L (136-145); Total Protein 7.1 g/dL (5.7-8.2)
--- NOTE | 2024-11-18 08:34 | DVH ---
CT CT AB PEL WO CON-NO ORAL OR IV INDICATION: intractable abdominal pain EXAM DATE: 11/18/2024 08:10 AM COMPARISON: None RADIATION DOSE: CTDIvol: 27.87 mGy, DLP: 1364.63 mGy*cm PROCEDURE: Helical CT images were obtained of the abdomen and pelvis without IV contrast Sagittal an d coronal reconstructions are provided. ORAL CONTRAST: None. ADDITIONAL IMAGES / REFORMATS: None All CT scans at this medical facility are performed using dose modulation techniques as appropriate t o a performed exam including the following: Automated exposure control was utilized; adjustment of th e MA and/or KV according to patient size; and use of iterative reconstruction technique. FINDINGS: LUNG BASE: Normal. LIVER: Normal. GALLBLADDER AND BILIARY TREE: Small gallstone in the gallbladder. No intra- or extrahepatic biliary d uctal dilation. PANCREAS: Normal. SPLEEN: Normal. BOWEL: Moderate to severe colonic diverticulosis. ADRENALS: Normal. KIDNEYS AND URETER: Normal. BLADDER: Normal. REPRODUCTIVE ORGANS: Normal. LYMPH NODES:No lymphadenopathy. PERITONEUM: No ascites or free air. No other fluid collection. VESSELS: Scattered atherosclerotic calcifications are noted. RETROPERITONEUM: Normal. ABDOMINAL WALL: Normal. BONES: Scattered osseous degenerative changes are noted. IMPRESSION: No acute intraabdominal abnormality. Moderate to severe colonic diverticulosis. Cholelithiasis.
[2024-11-18] MEDS: FLORASTOR (S. BOULARDII) 250 MG CAP PO SCH (09:41)
[2024-11-18] MEDS: amLODIPine BESYLATE 5 MG TAB PO SCH (09:42)
[2024-11-18] MEDS: CARVEDILOL 3.125 MG TAB PO SCH (09:42)
[2024-11-18] MEDS: TOPIRAMATE 25 MG TAB PO ONE (15:48)
--- NOTE | 2024-11-18 15:58 | DVHPNRES ---
Progress Note Date Seen: Nov 18, 2024 Resident Creating Document: FILEMON JORDAN RESIDENT Medical Necessity Reason Pt with a Central, PICC or Fol: No Subjective Review of Systems This is a 64-year-old female with past medical history of coronary artery disease, depression, hypertension, irritable bowel syndrome, and peptic ulcer disease presented to the hospital due to abdominal pain, vomiting and diarrhea. Per patient, the patient has localized epigastric pain since 1 days, continuous, sharp in nature, 9/10, which increased with mobility and changing position. She also reports of nausea, vomiting (60 episodes), fever, headache, cough, and diarrhea (10 episodes). She denies shortness of breath, chest pain, palpitation, dysuria, or any recent sick contact. Patient was seen and examined on the bedside. She is alert, oriented X 3. Complain of mild epigastric pain 3/10 and no complaining of diarrhea, vomiting or nausea since last night. Constitutional: No: Fever, Chills, Sweats, Weakness, Malaise, Other Eyes: No: Pain, Vision change, Conjunctivae inflammation, Eyelid inflammation, Other, Redness ENT: No: Ear pain, Ear discharge, Nose pain, Nose discharge, Nose congestion, Mouth pain, Mouth swelling, Throat pain, Throat swelling, Other Respiratory: Shortness of breath, improving No: Cough, Dry,Wheezing, Hemoptysis, Pleuritic Pain, Sputum, Wheezing, Other Cardiovascular: No: Chest Pain, Palpitations, Orthopnea, Paroxysmal Noc. Dyspnea, Edema, Lt Headedness, Other Gastrointestinal: Abdominal Pain No: Nausea, Vomiting, Diarrhea, Constipation, Melena, Hematochezia, Other Musculoskeletal: No: other, neck pain, shoulder pain, arm pain, back pain, hand pain, leg pain, foot pain Neurological:; No: Weakness, Numbness, Incoordination, Change in speech, Confusion, Seizures Objective vital signs Vital Sign Date Time Temp Pulse Resp B/P (MAP) Pulse Ox O2 Delivery O2 Flow Rate FiO2 11/18/24 10:42 87 138/88 11/18/24 09:00 98.4 20 85 98.4 11/18/24 08:00 Room Air* 0 21 Total Intake and Output 11/17/24 11/17/24 11/18/24 15:00 23:00 07:00 Intake Total 1000 ml Balance 1000 ml medications Current Medications Medications Dose Ordered Sig/Omer Route Start Time Stop Time Status Last Admin Dose Admin Saccharomyces Edisoni 250 mg DAILY PO 11/18/24 10:00 11/18/24 09:41 250 MG Ondansetron HCl 4 mg Q4HPRN PRN IV 11/18/24 00:30 Acetaminophen/ Hydrocodone Bitart 1 tab Q4HPRN PRN PO 11/18/24 01:00 11/18/24 13:09 1 TAB Bupropion HCl 150 mg BID@07,19 PO 11/18/24 07:00 11/18/24 06:33 150 MG Carvedilol 6.25 mg Q12HR PO 11/18/24 10:00 11/18/24 09:42 6.25 MG Amlodipine Besylate 10 mg DAILY PO 11/18/24 10:00 11/18/24 09:42 10 MG Atorvastatin Calcium 20 mg HS PO 11/18/24 22:00 Examination Physical examination: General Appearance: Alert, Oriented X3, Cooperative, No acute distress HEENT: Atraumatic, PERRLA, EOMI, Mucous membrane moist/pink Respiratory: Clear to auscultation, Normal air movement Cardiovascular: Regular rate, Normal S1, Normal S2, No murmurs, no chest wall tenderness Abdominal: Normal bowel sounds, Soft, No tenderness, No hepatospenomegaly, No masses Extremities: No clubbing, No cyanosis, No edema, Normal pulses, No tenderness/swelling Skin: No rashes, No breakdown, No significant lesion Neuro: Normal gait, Normal speech, Strength at 5/5 X4 ext, Normal tone, Sensation intact, grossly intact cranial nerves. Psych/Mental Status: Mental status NL, Mood NL laboratory and microbiology Laboratory Tests 11/18/24 05:39 Test 11/18/24 05:39 Range/Units Serum Glucose 119 H 74-106 mg/dL Labs and/or images reviewed: Labs reviewed by me, Image(s) reviewed by me Problem List/Assessment/Plan Problem List/Assessment/Plan Assessment and Plan: # Intractable abdominal pain, nausea and vomiting # Acute gastroenteritis - IV NS 2 L given - Cardiac diet - [place] 5/325 mg 1 tab p.o. q.4 p.r.n. - IV ondansetron 4 mg q.4 p.r.n. - Probiotics 250 mg p.o. daily - Pending stool study - CT abdomen pelvis revealed no acute intracranial abnormality, moderate to severe colonic diverticulosis and cholelithiasis # Hypertensive urgency - Carvedilol 6.25 mg b.i.d. and amlodipine 10 mg daily. - Echo on 04/08 demonstrated EF 60% with normal RV function. # History of anxiety /depression - Continue home meds bupropion and topiramate # Peptic ulcer disease - Protonix 40 mg p.o. daily # History of coronary artery disease - Aspirin 81 mg p.o. daily atorvastatin 20 mg at HS DIET: Cardiac diet DVT PROPHYLAXIS: Lovenox GI PROPHYLAXIS:: Protonix CODE STATUS: Goal of care discussed for more than 18 minutes, full code DISPOSITION: Med/surge Plan discussed with Dr. De Leon. Plan discussed with: Patient, Other Date of Service: Nov 18, 2024 Billing Provider: DRE FORTE MD Common Visit Codes: [id number] INP/OBS CARE(HIGH) FILEMON JORDAN RESIDENT Nov 18, 2024 15:58 DRE FORTE MD Nov 23, 2024 00:04
--- NOTE | 2024-11-18 18:27 | DVHSR ---
APPROVED REPORT EXAM: Two-dimensional and M-mode echocardiogram with Doppler and color Doppler. Blood Pressure: 138/88 mmHg INDICATION Hypertensive urgency RISK FACTORS Height: 64, Weight: 254 DIMENSIONS LVDd4.8 (3.8-5.7cm)LA (2D)3.2 (1.9-4.0cm)Aortic Root3.1 (2.0-3.7cm) LVDs3.2 (2.5-4.0cm)LA (MM) (1.9-4.0cm)Aortic Cusp Exc1.5 (1.5-2.0cm) EF (%) 60.0 (55-70%)Rt. Atrium3.2 (1.9-4.0cm)Asc. Aorta cm Mitral Valve MitralMitral Stenosis E wave1.13m/sMV Mean GR.mmHg A wave1.07m/sMV Peak GR.97mmHg E/A ratio1.12D MVAcm2 DECEL [id number] 1/2 [id number] IVRTmsDop MVA3.28cm2 Aortic Valve Aortic ValveAortic Stenosis V11.47m/Casey Mean GR.10mmHg V22.23m/Casey Peak GR.20mmHg LVOT Diameter1.9 (1.8-2.4cm)Doppler AVA1.87cm2 AI P 1/2 Bspm045.16ms Pulmonic Valve V21.35m/s Tricuspid Valve TR Velocity2.65m/s [id number] LEFT VENTRICLE The left ventricle is normal size. The left ventricle is normal in structure and function, LVEF is 55%. Normal diastolic function. Normal wall motion. RIGHT VENTRICLE The right ventricle is normal size. The right ventricular systolic function is normal. ATRIA The left atrial size is normal. The right atrium size is normal. MITRAL VALVE The mitral valve is grossly normal. Mitral regurgitation is trace. PULMONIC VALVE The pulmonic valve is not well visualized. TRICUSPID VALVE The tricuspid valve is grossly normal. There is trace tricuspid regurgitation. AORTIC VALVE The aortic valve is trileaflet. The aortic valve is mildly sclerotic. No aortic regurgitation is present. PERICARDIAL EFFUSION No evidence of pericardial effusion. Conclusion The left ventricle is normal size. The left ventricle is normal in structure and function, LVEF is 55 %. Normal diastolic function. The right ventricular systolic function is normal. The left and right atrial size is normal. No significant valvular abnormalities. No evidence of pericardial effusion.
[2024-11-18] MEDS: ATORVASTATIN 20 MG TAB PO SCH (22:14)
[2024-11-19 01:00] VITALS: BP 129/64; PULSE 72; RESP 17; TEMP 98; O2SAT 91
[2024-11-19 05:00] VITALS: BP 145/79; PULSE 71; RESP 17; TEMP 98; O2SAT 97
[2024-11-19 06:30] LABS: Basophils # (auto) 0 10 ^3/uL (0-0.2); Basophils % (auto) 0.4 % (0.0-2.0); Eosinophils # (auto) 0.1 10 ^3/uL (0-0.8); Hematocrit 37.2 % (36.0-46.0); Hemoglobin 12.3 g/dL (12.2-16.2); Lymphocytes # (auto) 2.4 10 ^3/uL (0.4-5.4); Lymphocytes % (auto) 40.6 % (10.0-50.0); Mean Corpuscular Hemoglobin 28.1 pg (28.0-32.0); Mean Corpuscular Hgb Conc. 32.9 g/dL (32.0-36.0); Mean Corpuscular Volume 85.3 fL (80.0-100.0); Monocytes # (auto) 0.6 10 ^3/uL (0-1.3); Monocytes % (auto) 10.6 % (0.0-12.0); Neutrophils # (auto) 2.8 10 ^3/uL (1.6-8.6); Neutrophils % (auto) 47.4 % (37.0-80.0); Nucleated Red Blood Cells % 0.1 %; Platelet Count (auto) 190 10^3/uL (140-450); Red Blood Cells 4.36 10^6/uL (4.0-5.20); Red Cell Distribution Width 17.1 % (11.8-14.3); White Blood Cell 5.8 10^3/uL (4.4-10.8)
[2024-11-19] MEDS: PANTOPRAZOLE 40 MG TAB PO SCH (06:38)
[2024-11-19 07:00] LABS: Alanine Aminotransferase 22 U/L (7-40); Albumin 4.2 g/dL (3.2-4.8); Alkaline Phosphatase 62 U/L (46-116); Anion Gap 5 (5-15); Aspartate Aminotransferase 20 U/L (13-40); BUN/Creatinine Ratio 18.2 (10.0-20.0); Bilirubin, Total 0.4 mg/dL (0.2-1.0); Blood Urea Nitrogen 14 mg/dL (9-23); Calcium 9.8 mg/dL (8.7-10.4); Carbon Dioxide 27 mmol/L (20-31); Chloride 105 mmol/L (98-107); Glucose 97 mg/dL (74-106); Potassium 3.9 mmol/L (3.5-5.1); Sodium 137 mmol/L (136-145); Total Protein 6.6 g/dL (5.7-8.2)
[2024-11-19 08:00] VITALS: RESP 16; O2SAT 95
[2024-11-19 09:00] VITALS: BP 138/63; PULSE 81; RESP 16; TEMP 98.5; O2SAT 95
[2024-11-19 09:33] VITALS: BP 138/63; PULSE 85; RESP 16; TEMP 36.7; O2SAT 95
[2024-11-19] MEDS: ASPirin-EC 81 mg tab PO SCH (09:49)
[2024-11-19] MEDS: ENOXAPARIN SOD 40 MG/0.4 ML SYRINGE SC SCH (09:50)
--- NOTE | 2024-11-19 11:20 | DVHDSRES ---
Discharge Summary Date of Admission Resident Creating Document: JARAD HUITRON RESIDENT Nov 17, 2024 at 22:39 Date of Discharge: Nov 19, 2024 Admitting Diagnosis Acute abdominal pain Wounds: No wounds present at this time. Labs/Diagnostic Data: Laboratory Results Test 11/19/24 06:02 11/18/24 05:39 11/18/24 01:00 11/18/24 00:50 White Blood Count 5.8 10^3/uL (4.4-10.8) Red Blood Count 4.36 10^6/uL (4.0-5.20) Hemoglobin 12.3 g/dL (12.2-16.2) Hematocrit 37.2 % (36.0-46.0) Mean Corpuscular Volume 85.3 fL (80.0-100.0) Mean Corpuscular Hemoglobin 28.1 pg (28.0-32.0) Mean Corpuscular Hemoglobin Concent 32.9 g/dL (32.0-36.0) Red Cell Distribution Width 17.1 % (11.8-14.3) Platelet Count 190 10^3/uL (140-450) Mean Platelet Volume 8.6 fL (6.9-10.8) Neutrophils (%) (Auto) 47.4 % (37.0-80.0) Lymphocytes (%) (Auto) 40.6 % (10.0-50.0) Monocytes (%) (Auto) 10.6 % (0.0-12.0) Eosinophils (%) (Auto) 1.0 % (0.0-7.0) Basophils (%) (Auto) 0.4 % (0.0-2.0) Neutrophils # (Auto) 2.8 10 ^3/uL (1.6-8.6) Lymphocytes # (Auto) 2.4 10 ^3/uL (0.4-5.4) Monocytes # (Auto) 0.6 10 ^3/uL (0-1.3) Eosinophils # (Auto) 0.1 10 ^3/uL (0-0.8) Basophils # (Auto) 0 10 ^3/uL (0-0.2) Nucleated Red Blood Cells 0.1 % Sodium Level 137 mmol/L (136-145) Potassium Level 3.9 mmol/L (3.5-5.1) Chloride Level 105 mmol/L (98-107) Carbon Dioxide Level 27 mmol/L (20-31) Anion Gap 5 (5-15) Blood Urea Nitrogen 14 mg/dL (9-23) Creatinine 0.77 mg/dL (0.550-1.02) Glomerular Filtration Rate Calc 85 mL/min (>90) BUN/Creatinine Ratio 18.2 (10.0-20.0) Serum Glucose 97 mg/dL (74-106) Calcium Level 9.8 mg/dL (8.7-10.4) Total Bilirubin 0.4 mg/dL (0.2-1.0) Aspartate Amino Transferase (AST) 20 U/L (13-40) Alanine Aminotransferase (ALT) 22 U/L (7-40) Alkaline Phosphatase 62 U/L (46-116) Total Protein 6.6 g/dL (5.7-8.2) Albumin 4.2 g/dL (3.2-4.8) Urine Opiates Screen Neg (NEGATIVE) Urine Fentanyl Screen Neg (NEGATIVE) Urine Barbiturates Screen Neg (NEGATIVE) Urine Phencyclidine Screen Neg (NEGATIVE) Urine Amphetamines Screen Neg (NEGATIVE) Urine Benzodiazepines Screen Neg (NEGATIVE) Urine Cocaine Screen Neg (NEGATIVE) Urine Cannabinoids Screen Pos (NEGATIVE) SARS-CoV-2 Antigen (Rapid) Negative (NEGATIVE) Test 11/17/24 15:24 11/17/24 15:10 Urine Color Light-yellow (Yellow) Urine Clarity Turbid (Clear) Urine pH 8.0 (5.0-9.0) Urine Specific [place] 1.015 (1.001-1.035) Urine Protein Negative (Negative) Urine Ketones Negative (Negative) Urine Blood Negative /uL (Negative) Urine Nitrite Negative (Negative) Urine Bilirubin Negative (Negative) Urine Urobilinogen Normal mg/dL (Negative) Urine Leukocyte Esterase Negative /uL (Negative) Urine RBC 1 /hpf (0 - 4) Urine Microscopic WBC 2 /HPF (0-5) Urine Squamous Epithelial Cells Few /hpf (<5) Urine Bacteria Few /hpf (None Seen) Urine Glucose Normal mg/dL (Normal) Magnesium Level 1.9 mg/dL (1.6-2.6) Lipase 29 U/L (12-53) Other Laboratory Tests 11/19/24 06:02 Brief Hx & Hospital Course: This is a 64-year-old female with past medical history of coronary artery disease, depression, hypertension, irritable bowel syndrome, and peptic ulcer disease, The patient presented to the ED due to Acute abdominal pain, vomiting and diarrhea. On admission, the patient reported localized epigastric pain since 1 day before coming to the ER. The patient described the pain as continuous, sharp in nature, 9/10, which increased with mobility and changing position. She also reports of nausea, vomiting several times, fever, headache, cough, and diarrhea in multiple episodes as well. She denied shortness of breath, chest pain, palpitation, dysuria, or any recent sick contact. Gallbladder ultrasound showed mildly echogenic liver parenchyma likely due to fatty infiltration with no evidence of cholelithiasis. CT scan of the abdomen showed no acute intra-abdominal abnormalities. Today, the patient denies nausea, vomiting or diarrhea. The patient is tolerating cardiac diet without complications. Patient denied fever or chills at this time. Patient will be discharged home. The patient was instructed to keep well hydration and follow- up with her PCP one week. The patient agreed and understood. Discharge plan: -F/U with her PCP in 1 week -Keep well hydration -No need for abs at this time Consults/Reason for consult N/A Operations or Procedures ULTRASOUND ABDOMEN LIMITED INDICATION: pain TECHNIQUE: Multiple real-time sonographic images of the abdomen were obtained. COMPARISON: None FINDINGS: The visualized liver parenchyma appears mildly echogenic. . The liver measures 18.9 cm. No discrete hepatic lesion or intrahepatic biliary ductal dilatation is identified. There is no evidence of gallstones, gallbladder wall thickening or pericholecystic fluid. The common biliary duct is not dilated. The right kidney measures 10 cm length. No sonographic evidence of nephrolithiasis or hydronephrosis. Visualized portions of the pancreas appears within normal limits. IMPRESSION: 1. Mildly echogenic liver parenchyma likely related to fatty infiltration. 2. There is no sonographic evidence of cholelithiasis. CT CT AB PEL WO CON-NO ORAL OR IV INDICATION: intractable abdominal pain EXAM DATE: 11/18/2024 08:10 AM COMPARISON: None RADIATION DOSE: CTDIvol: 27.87 mGy, DLP: 1364.63 mGy*cm PROCEDURE: Helical CT images were obtained of the abdomen and pelvis without IV contrast Sagittal and coronal reconstructions are provided. ORAL CONTRAST: None. ADDITIONAL IMAGES / REFORMATS: None All CT scans at this medical facility are performed using dose modulation techniques as appropriate to a performed exam including the following: Automated exposure control was utilized; adjustment of the MA and/or KV according to patient size; and use of iterative reconstruction technique. FINDINGS: LUNG BASE: Normal. LIVER: Normal. GALLBLADDER AND BILIARY TREE: Small gallstone in the gallbladder. No intra- or extrahepatic biliary ductal dilation. PANCREAS: Normal. SPLEEN: Normal. BOWEL: Moderate to severe colonic diverticulosis. ADRENALS: Normal. KIDNEYS AND URETER: Normal. BLADDER: Normal. REPRODUCTIVE ORGANS: Normal. LYMPH NODES:No lymphadenopathy. PERITONEUM: No ascites or free air. No other fluid collection. VESSELS: Scattered atherosclerotic calcifications are noted. RETROPERITONEUM: Normal. ABDOMINAL WALL: Normal. BONES: Scattered osseous degenerative changes are noted. IMPRESSION: No acute intraabdominal abnormality. Moderate to severe colonic diverticulosis. Cholelithiasis. Condition at Discharge: Good Final Diagnosis/Problems List Acute Intractable abdominal pain with N/V Acute gastroenteritis Hypertensive urgency History of anxiety /depression Peptic ulcer disease History of coronary artery disease Discharge Disposition: Home Discharge Instruct/Medications Diet: Regular Activity: No Restrictions, As Tolerated Follow Up/Referral: F/U with her PCP in 1 week as outpatinet Medications: continue home meds Discharge Statement: "Patient was advised to return to the ER or call 911 if any headaches, dizziness, shortness of breath, chest pain, abdominal pain, bleeding, fevers, or worsening of medical condition. Patient was counseled about treatment plan, medications, possible side effects, patientverbalized understanding. All questions were answered to the best of my ability. This discharge took greater then 30 minutes in planning, reviewing documentation, counseling the patient, and discussing with other team members." ASSESSMENT ASSESSMENT Assessment Acute Intractable abdominal pain with N/V Acute gastroenteritis Hypertensive urgency History of anxiety /depression Peptic ulcer disease History of coronary artery disease JARAD HUITRON RESIDENT Nov 19, 2024 11:19
[2024-11-21 10:27] LABS: Hepatitis B Surface Antigen Negative (Negative); Hepatitis C Antibody Negative (Negative)
== END 2024-11-19 11:00 | disposition home or self-care (01) | DRG 392 ==
LOC: EDBD 14:20 → ER 14:20 → OVERFLOW 22:39 → CENTRAL 23:32
PROVIDERS: ADMIT Student in an Organized Health Care Education/Training Program; ATTEND Emergency Medicine
DX: A08.4 Viral intestinal infection, unspecified (principal); I16.0 Hypertensive urgency; I10 Essential (primary) hypertension; K21.9 Gastro-esophageal reflux disease without esophagitis; I25.10 Atherosclerotic heart disease of native coronary artery without angina pectoris; F32.A Depression, unspecified; Z20.822 Contact with and (suspected) exposure to COVID-19; Z88.0 Allergy status to penicillin; Z79.899 Other long term (current) drug therapy; Z87.11 Personal history of peptic ulcer disease; Z90.710 Acquired absence of both cervix and uterus
CPT/HCPCS: 36415; 74176; 76705; 80053; 80307; 81001; 83690; 83735; 85025; 86803; 87340; 87426; 93005; 93306; 96361; 96374; 96375; G0378; J2405; J2470